=== PATIENT | female | born 1990 | race Two or more races ===

== ENCOUNTER 2022-01-03 06:38 | Inpatient (IN) ==
[2022-01-03] MEDS ORDERED: OXYTOCIN 30 UNITS/500 ML BAG IV PRN ×3 (07:00→16:00)
--- NOTE | 2022-01-03 07:00 | History & Physical Report ---
Date of Service January 03, 2022 Assessment & Plan (1) Encounter for supervision of normal in multigravida, antepartum: Plan: Admit to L&D, labs/EFM/toco. OK for epidural if she desires. History of Present Illness Chief Complaint: contractions Primary Care Provider: [facility] 31yo @ 40 09/02, presents with contractions that started last night. Now every 5 minutes. and Delivery Plans 1 Pfizer COVID vaccination in October 2020 (pt unsure of exact date) G6PD gene mutation, Low H&H *Heme consult 11/12 Post-Dates Induction 01/11 per patient request Covid test 01/07 Allergies Allergy/AdvReac Type Severity Reaction Status Date / Time No Known Allergies Allergy Verified 12/31/21 15:21 Home Medications Medication Instructions Recorded Confirmed Type prenat.vits,daiana,qbf-cbch-gducc 1 tab PO DAILY #30 tabs 06/16/21 12/31/21 Rx ferrous sulfate 325 mg (65 mg 325 mg PO DAILY 11/22/21 12/31/21 History iron) tablet Patient History Medical History (Updated 06/16/21 @ 14:40 by Pratibha LEVINE, WHITNEY) Anemia Epigastric abdominal pain GERD (gastroesophageal reflux disease) Mutation in G6PD gene Surgical History (Updated 06/16/21 @ 14:35 by Pratibha LEVINE, WHITNEY) No significant past surgical history Family History (Updated 06/16/21 @ 14:23 by Pratibha LEVINE, WHITNEY) Mother Hypertension Son Mutation in G6PD gene Other Cancer Denies family history of Ovarian cancer Prostate cancer Breast cancer Lung cancer Colorectal cancer Social History (Updated 06/16/21 @ 14:26 by Pratibha LEVINE, WHITNEY) Smoking Status: Never smoker Hx Alcohol Use: No Hx Substance Use: No Preferred Language: Taiwanese Communication Ability: Effective marital status: marital status details: Agusto Carrera (45) [phone] Current Living Situation: Spouse and Family Current Living Situation Comment: FOB and children - no pets current occupational status: student Review of Systems All systems reviewed & are unremarkable except as noted in HPI & below Physical Exam Physical Exam: FHT Cat 1 Colome Q 5 SVE 3/90/-2 Constitutional: WD/WN, vitals as above Respiratory: normal respiratory effort, lungs clear to auscultation no respiratory distress Cardiovascular: Rate/Rhythm: regular rate and regular rhythm Gastrointestinal (Abdomen): Inspection/Auscultation: abdomen normal to inspection Percussion/Palpation: abdomen soft; abdomen nontender Gravid. No s/s chorio or abruption. Skin: no rashes, warm and dry Psychiatric: A+Ox3, euthymic affect Coding Level of Care Code None Diagnoses Encounter for supervision of normal in multigravida, antepartum Z34.80
[2022-01-03 07:47] LABS: Hematocrit (blood only) 37.1 % (34.1-44.9); Hemoglobin 10.7 g/dl (12.0-16.0); Mean Corpuscular Hemoglobin 22.2 pg (25.0-34.0); Mean Corpuscular Hgb Conc 28.8 g/dL (32.0-36.0); Mean Corpuscular Volume 77.1 fL (80.0-100.0); Mean Platelet Volume 10.6 fL (9.4-12.3); Platelet Count 145 K/uL (130-400); RDW Coefficient of Variation 13.4 % (11.5-14.5); RDW Standard Deviation 37.8 fL (36.4-46.3); Red Blood Count 4.81 M/uL (3.93-5.22); White Blood Count 6.54 K/ul (4.8-10.8)
[2022-01-03] MEDS: LACTATED RINGER'S 1,000 ML IV PRN ×2 (07:49→15:16)
--- NOTE | 2022-01-03 10:02 | Labor Progress Brief Note ---
Date of Service January 03, 2022 Subjective Notes worsening ctx Assessment & Plan (1) Encounter for supervision of normal in multigravida, antepartum: Plan: 31 y/o at 40 4/7 wga admitted in labor VSS Fetus cat 1 Labor - s/p arom, will see how progresses GBS neg epidural PRN Admission and Anticipated Discharge Date Admission Date: January 03, 2022 Physical Exam Genitourinary: Manual OB Exam: + cervical dilation 4 cm, + cervical effacement 80%, + station -2 and + amniotic fluid (AROM) meconium OB Exam Monitor Tracing: + external FHT monitor used, + external uterine monitor used (q3-4) and + category I (135/mod/+accel/-decel) Results & Data ([facility]) Vital Signs (Past 12 Hours) Vital Signs Temp Pulse Resp BP O2 Del Method 01/03/22 08:16 97.9 F 20 01/03/22 07:12 97.9 F 16 Room Air 01/03/22 07:08 97.9 F 01/03/22 07:00 90 112/75 Coding Level of Care Code None Diagnoses Encounter for supervision of normal in multigravida, antepartum Z34.80
[2022-01-03] MEDS ORDERED: bisacodyL 10 MG SUPP PR PRN (16:00)
[2022-01-03] MEDS ORDERED: HYDROCORTISONE ACETATE 25 MG SUPP PR PRN (16:00)
[2022-01-03] MEDS ORDERED: BENZOCAINE 20% AER SPR 82.5 GM CAN EXT PRN (16:00)
[2022-01-03] MEDS ORDERED: DIPHTHERIA/TETANUS/PERTUSSIS 0.5 ML SYR/VIAL IM ONE (16:00)
[2022-01-03] MEDS ORDERED: ACETAMINOPHEN 325 MG TAB PO PRN (16:00)
--- NOTE | 2022-01-03 16:02 | Delivery Summary ---
Vaginal Delivery Summary Date of Service January 03, 2022 Vaginal Delivery Summary [facility] PREOPERATIVE DIAGNOSIS: 1. Single intrauterine at 40 4/7 wga 2. Labor 3. G6PD gene mutation POSTOPERATIVE DIAGNOSIS: 1. Single intrauterine at 40 4/7 wga 2. Labor 3. G6PD gene mutation 4. Delivered PROCEDURE: 1. Normal spontaneous vaginal delivery. SURGEON: Chanelle Marshall MD ANESTHESIA: None ESTIMATED BLOOD LOSS: 300 mL FLUIDS: Continuous LR. URINE OUTPUT: None. COMPLICATIONS: None. CONDITION: Stable. INDICATIONS: 31 y/o at 40 4/7 wga presented this morning in labor. She underwent artificial rupture of membranes and progressed spontaneously to complete and desired to push. FINDINGS: A viable female infant, weight pending with Apgars of 7 and 8 at 1 and 5 minutes respectively. SPECIMEN: Cord blood OPERATIVE REPORT: The patient progressed to 10 cm, 100% effaced and +2 station, pushed over intact perineum with anesthesia to deliver a viable female infant, weight and Apgars as above. Head of delivered in SALINA position. No nuchal cord was present. Body and shoulders were delivered without difficulty. was delivered to maternal abdomen and nursing staff. Delayed cord clamping was performed for 60 seconds. Cord was clamped and cut. Cord blood was obtained. Placenta delivered spontaneously intact with 3-vessel cord. IV oxytocin and fundal massage were given for excellent hemostasis. Vagina, cervix, perineum, and placenta were inspected. No lacerations were noted. Sponge and needle counts correct x2. No sponges were left behind. Mother and stable in immediate period. [facility] Vaginal Delivery Charge Vaginal Delivery Codes: 16532 global code for the antepartum, delivery, and post- Delivery Type Details: [facility]
[2022-01-03] MEDS: IBUPROFEN 600 MG TAB PO PRN ×2 (17:16→21:16)
[2022-01-03] MEDS: DOCUSATE SODIUM 100 MG CAP PO SCH (21:16)
--- NOTE | 2022-01-04 05:36 | Obstetrical Progress Note ---
Date of Service <Shelby Araya DO - Last Filed: 01/04/22 07:30> January 04, 2022 Assessment & Plan <Shelby Araya DO - Last Filed: 01/04/22 07:30> (1) Encounter for supervision of normal in multigravida, antepartum: Plan s/p PPD 1 -Vital signs reviewed and WNL (Tmax at 36.8) -Hemoglobin reviewed, 10.7 (yesterday 01/03) -Blood type: O+, GBS-, rubella immune -Pt is doing well clinically -Encourage ambulation, monitor and control pain with Motrin PRN, resume regular diet. Monitor lochia. -Encourage -Discussed with patient that she could be discharged at 24hrs if she would like, states she will discuss with her . <Chanelle Marshall MD - Last Filed: 01/04/22 08:51> (1) Encounter for supervision of normal in multigravida, antepartum: Subjective <DO Viet Marrero Last Filed: 01/04/22 07:30> Geronimo is a 31 y/o female who is PPD #1 following delivery at 40 4/7 weeks. She has a history of G6PD mutation and low H & H. Patient was seen and examined at bedside. She reports feeling well overall this morning. Admits to some abdominal cramping & 3/10 pain well managed on analgesics. Voiding without issue. Tolerating meals overnight, states she has not tried to ambulate yet. Has been passing gas but has not had a bowel movement yet. Has some persistent lochia with some improvement this morning. Currently breast feeding. Constitutional: no fever, no chills or no sweats Respiratory: no cough, no dyspnea or no wheezing Cardiovascular: no chest pain, no palpitations or no calf pain Breast: no breast pain Genitourinary (female): no dysuria Neurologic: no headache(s) Physical Exam <DO Viet Marrero Last Filed: 01/04/22 07:30> Constitutional WD/WN, vitals as above no acute distress Respiratory no respiratory distress Auscultation: lungs clear to auscultation bilaterally; no rales, no rhonchi and no wheezes Cardiovascular RRR, no murmur, no edema Extremities: no calf tenderness and no edema Negative Alonzo's sign bilaterally. Gastrointestinal (Abdomen) Inspection/Auscultation: normal bowel sounds Genitourinary Uterine fundus firm, palpable below the umbilicus. Results & Data ([facility]) <Shelby Araya DO - Last Filed: 01/04/22 07:30> Vital Signs (Past 12 Hours) Vital Signs Temp Pulse Pulse Resp BP BP Pulse Ox 01/04/22 04:10 94/64 L 01/04/22 03:35 36.6 C 76 16 87/51 L 97 01/03/22 22:55 36.5 C 63 16 95/59 L 97 01/03/22 20:00 36.5 C 77 18 95/62 L 01/03/22 17:57 36.8 C 20 01/03/22 17:57 82 01/03/22 17:57 105/54 L 01/03/22 17:44 80 01/03/22 17:44 103/63 O2 Del Method 01/04/22 04:10 01/04/22 03:35 Room Air 01/03/22 22:55 Room Air 01/03/22 20:00 01/03/22 17:57 01/03/22 17:57 01/03/22 17:57 01/03/22 17:44 01/03/22 17:44 <Chanelle Marshall MD - Last Filed: 01/04/22 08:51> Co-Signing Physician Notes Resident Physician Supervision Note: I was present with Dr. Araya during the history and exam. I discussed the case with the resident and agree with the findings and plan as documented in the note. Any exceptions or clarifications are listed here: PP1 s/p , doing well. Encourage ambulation today. Nursing noted BP is low but has normal and decreasing lochia, nontachycardic so suspected related to sleeping/resting. May want to d/c home today, she will discuss w/ Documented By: Chanelle Marshall MD Resident Activity Tracking <Shelby Araya DO - Last Filed: 01/04/22 07:30> Resident Involvement: Resident Care Provided Care Provided: OB Delivery
[2022-01-04] MEDS: IBUPROFEN 600 MG TAB PO PRN ×4 (07:17→23:35)
[2022-01-04] MEDS: DOCUSATE SODIUM 100 MG CAP PO SCH ×2 (08:35→20:30)
[2022-01-04] MEDS: PRENATAL VITAMIN 1 TAB PO SCH (08:35)
[2022-01-04] MEDS: FERROUS SULFATE 325 MG TAB PO SCH (08:35)
[2022-01-04] MEDS ORDERED: bisacodyL 5 MG TABEC PO SCH (20:00)
--- NOTE | 2022-01-05 05:52 | Obstetrical Progress Note ---
Date of Service <Shelby Araya DO - Last Filed: 01/05/22 07:52> January 05, 2022 Assessment & Plan <Shelby Araya DO - Last Filed: 01/05/22 07:52> (1) Encounter for supervision of normal in multigravida, antepartum: Plan s/p PPD 2 -Vital signs reviewed and WNL (Tmax at 36.8) -Hemoglobin reviewed, 10.7 (8/8) -Blood type: O+, GBS-, rubella immune -Pt is doing well clinically -Encourage ambulation, monitor and control pain with Motrin PRN, resume regular diet. Monitor lochia. -Encourage -Discussed discharge instructions with patient. <Kiara Bassett MD - Last Filed: 01/05/22 07:58> (1) Encounter for supervision of normal in multigravida, antepartum: Subjective <Shelby Araya DO - Last Filed: 01/05/22 07:52> Geronimo is a 31 y/o female who is PPD 2 from at 40 4/7 weeks. was complicated by G6PD mutation and low H & H. Patient was seen and examined at bedside. Urinating without issue. Has passed gas, but no BM yet. is going well. Persistent lochia but improved this morning. Some abdominal cramping but improving and well controlled with analgesics. Constitutional: no fever, no chills or no sweats Respiratory: no cough, no dyspnea or no wheezing Cardiovascular: no chest pain, no palpitations or no calf pain Breast: no breast pain Genitourinary (female): no dysuria Neurologic: no headache(s) Physical Exam <Shelby Araya DO - Last Filed: 01/05/22 07:52> Constitutional WD/WN, vitals as above no acute distress Respiratory no respiratory distress Auscultation: lungs clear to auscultation bilaterally; no rales, no rhonchi and no wheezes Cardiovascular RRR, no murmur, no edema Extremities: no calf tenderness and no edema Gastrointestinal (Abdomen) Inspection/Auscultation: normal bowel sounds Genitourinary Uterine fundus firm and palpable below umbilicus Results & Data ([facility]) <Shelby Araya, - Last Filed: 01/05/22 07:52> Vital Signs (Past 12 Hours) Vital Signs Temp Pulse Resp BP O2 Del Method 01/04/22 23:30 36.5 C 62 16 101/66 Room Air 01/04/22 19:25 36.6 C 78 16 105/72 Room Air <Kiara Bassett MD - Last Filed: 01/05/22 07:58> Co-Signing Physician Notes Resident Physician Supervision Note: I interviewed and examined the patient. Discussed with Dr. Araya and agree with findings and plan as documented in the note. Any exceptions or clarifications are listed here: [ ] Documented By: Kiara Bassett MD, FACOG Resident Activity Tracking <Shelby Araya DO - Last Filed: 01/05/22 07:52> Resident Involvement: Resident Care Provided Care Provided: OB Delivery
[2022-01-05] MEDS: PRENATAL VITAMIN 1 TAB PO SCH (08:25)
[2022-01-05] MEDS: IBUPROFEN 600 MG TAB PO PRN ×2 (08:25→12:24)
[2022-01-05] MEDS: DOCUSATE SODIUM 100 MG CAP PO SCH (08:25)
[2022-01-05] MEDS: FERROUS SULFATE 325 MG TAB PO SCH (09:24)
== END 2022-01-05 16:05 | disposition home or self-care (01) | DRG 807 ==
LOC: OPB 06:38 → 4S1 06:40 → 4E2 18:55